=== PATIENT | female | born 1965 ===

== ENCOUNTER 2016-05-10 03:20 | Emergency (ER) | payer OTHER ==
[~2016-05-10 03:20] MED LIST: AMOXIL 875 MG875 MG PO; ANTIVERT 25MG #1 PAC PO; LEVAQUIN500 MG PO; PERCOCET 5-3251 EACH PO; PROMETHAZINE HC25 M3 PO; TESSALON PERLE100 MG PO
--- NOTE | 2016-05-10 03:50 | ED DYSPNEA/ASTHMA COMPLAINT ---
History of Present Illness General Chief Complaint: Chest Pain Stated Complaint: "PER PT SOB AND CP" Source: patient, family Exam Limitations: no limitations Vital Signs & Intake/Output Vital Signs & Intake/Output Vital Signs Date Time Temp Pulse Resp B/P Pulse O2 O2 Flow FiO2 Ox Delivery Rate 05/10 338 94 Room Air Room Air 05/10 336 101.3 83 20 141/76 94 Room Air Allergies Coded Allergies: ketorolac (From Toradol) (Severe, ANAPHYLAXIS 08/27/15) naproxen (From Aleve) (DIARRHEA 08/27/15) Reconcile Medications Albuterol Sulfate (Ventolin Hfa) 90 MCG HFA.AER.AD 2 PUF INH Q4-6 PRN PRN wheeze/cough Amoxicillin (Amoxil 875 MG Tablets) 875 MG TAB 1 TAB PO BID bronchitis Azithromycin (Zithromax) 250 MG TABLET 1 DP PO AD bronchitis 2 the first day followed by 1 for days 2-5 Benzonatate (Tessalon Perle) 100 MG CAPSULE 1 CAP PO TID PRN COUGH Benzonatate (Tessalon Perle) 100 MG CAPSULE 1-2 CAP PO TID cough Benzonatate (Tessalon Perle) 100 MG CAPSULE 1 CAP PO TID PRN COUGH Levofloxacin (Levaquin) 500 MG TABLET 1 TAB PO QDAY BRONCHITIS Meclizine (Antivert) 25 MG PAC 1 TAB PO TID PRN DIZZINESS Oxycodone HCl/Acetaminophen (Percocet 5-325 MG Tablet) 1 EACH TABLET 1-2 TAB PO Q6P PRN pain Oxycodone HCl/Acetaminophen (Percocet 5-325 MG Tablet) 5 MG-325 MG TABLET 1 TAB PO 4XDP PRN PAIN eight...[id number] Prednisone 50 MG TABLET 1 TAB PO DAILY bronchitis Promethazine HCl 25 MG TABLET 1 TAB PO Q6P PRN NAUSEA/VOMITING Triage Note: ARRIVED ER C/O TIGHTNESS IN CHEST /DIFFICULTY BREATHING,HX ASTHMA.WHEEZING Triage Nurses Notes Reviewed? yes Onset: Gradual Duration: day(s):, getting worse Timing: single episode today Severity: moderate Activities at Onset: none Prior Episodes/Possible Cause: occasional episodes Modifying Factors: Worsens With: movement, other (cough). Associated Symptoms: cough, wheezing HPI: 50 yo woman h/o asthma, presents with cough, wheeze x 1 day. "I cough so much it hurts my chest." "I have body aches all over... my back... all over." No fever, chills, radiation, diaphoresis, syncopal symptoms. (ESTRELLITA RODRIGUEZ,AYALA Nixon) Past History Travel History Traveled to [place] past 21 day No Medical History Any Pertinent Medical History? see below for history Neurological: NONE EENT: NONE Cardiovascular: hypertension, hyperlipidemia Respiratory: asthma Gastrointestinal: NONE Hepatic: NONE Renal: NONE Musculoskeletal: NONE Psychiatric: NONE Endocrine: diabetes Blood Disorders: NONE Cancer(s): NONE Surgical History Surgical History: non-contributory Psychosocial History Who do you live with Spouse Services at Home None What is your primary language [place] Tobacco Use: Never used Family History Hx Contributory? No (ESTRELLITA RODRIGUEZ,AYALA Nixon) Review of Systems Review of Systems Constitutional: Reports: no symptoms. EENTM: Reports: no symptoms. Respiratory: Reports: no symptoms. Cardiovascular: Reports: no symptoms. GI: Reports: no symptoms. Genitourinary: Reports: no symptoms. Musculoskeletal: Reports: no symptoms. Skin: Reports: no symptoms. Neurological/Psychological: Reports: no symptoms. Hematologic/Endocrine: Reports: no symptoms. Immunologic/Allergic: Reports: no symptoms. All Other Systems: Reviewed and Negative (ESTRELLITA RODRIGUEZ,AYALA Nixon) Physical Exam Physical Exam General Appearance: well developed/nourished, mild distress Head: atraumatic, normal appearance Eyes: Bilateral: normal appearance. Ears, Nose, Throat: normal pharynx, normal ENT inspection Neck: normal inspection Respiratory: wheezing, tenderness to parasternal region across chest to palpation Cardiovascular: regular rate/rhythm Gastrointestinal: normal bowel sounds, soft, non-tender Extremities: normal inspection Neurologic/Psych: no motor/sensory deficits, awake, alert, oriented x 3 Skin: intact, normal color, warm/dry Core Measures ACS in differential dx? No Severe Sepsis Present: No Septic Shock Present: No (AYALA CARREON MD) Progress Differential Diagnosis: asthma, bronchitis, CHF, COPD Plan of Care: Orders Procedure Date/time Status RAPID VIRAL INFLUENZA A 05/10 044 Complete TROPONIN LEVEL 05/10 349 Complete MAGNESIUM 05/10 035 Complete D-DIMER 05/10 349 Complete COMPREHENSIVE METABOLIC PANEL 05/10 035 Complete CBC WITHOUT DIFFERENTIAL 01/05 0350 Complete EKG 05/10 0322 Active Laboratory Tests 05/10/16 0455: Anion Gap 12, Estimated GFR > 60, BUN/Creatinine Ratio 22.5, Glucose 138 H, Calcium 9.3, Magnesium 0.9 *L, Total Bilirubin 0.4, AST 39 H, ALT 34, Alkaline Phosphatase 88, Troponin I < 0.01, Total Protein 7.5, Albumin 3.7, Globulin 3.8, Albumin/Globulin Ratio 1.0 L, D-Dimer 346 H, CBC w Diff NO MAN DIFF REQ, RBC 5.09, MCV 62.4 L, MCH 19.1 L, RDW 19.6 H, MPV 7.9, Gran % 70.3, Lymphocytes % 20.1 L, Monocytes % 7.5, Eosinophils % 1.8, Basophils % 0.3, Absolute Granulocytes 4.8, Absolute Lymphocytes 1.4, Absolute Monocytes 0.5, Absolute Eosinophils 0.1, Absolute Basophils 0, PUBS MCHC 30.6 L Diagnostic Imaging: Viewed by Me: Radiology Read. Discussed w/RAD: Radiology Read. Initial ED EKG: normal axis, normal intervals, normal p-waves, normal QRS complex, normal sinus rhythm Hand-Off Endorsed To: AVE PARK MD Endorsed Time: 0700 Pending: CT (ESTRELLITA RODRIGUEZ,AYALA Nixon) Radiology Impression: PATIENT: PASTORA SANTOS PRESENT AGE: 50 PATIENT ACCOUNT NO: [id number] : 66 LOCATION: [facility] ORDERING PHYSICIAN: AYALA CARREON MD SERVICE DATE: 05/10/16 EXAM TYPE: CAT - CTA CHEST-PULMONARY EMBOLISM EXAMINATION: CT ANGIOGRAM OF THE CHEST WITH AND WITHOUT CONTRAST (CT PULMONARY ANGIOGRAM FOR PE) CLINICAL INFORMATION: Dyspnea, positive d-dimer COMPARISON: CT abdomen pelvis 08/27/2015. Chest x-ray 12/31/2014 TECHNIQUE: Prior to contrast administration, noncontrast localization images were obtained. Subsequently, multidetector volumetric imaging was performed from the thoracic inlet to below the diaphragms following the administration of 98 mL Optiray 320 intravenous contrast. No contrast reaction reported Sagittal, coronal, and MIP oblique sagittal reformatted images were obtained on the CT workstation, uploaded to PACS, and reviewed. FINDINGS: QUALITY OF STUDY/CONTRAST BOLUS: Satisfactory. Evaluation of subsegmental pulmonary emboli is limited by the image quality from the patient's body habitus and imaging [id number]. PULMONARY ARTERIES: No central or segmental pulmonary emboli. Evaluation of the subsegmental pulmonary emboli is limited. THORACIC AORTA: No aneurysm or dissection. LUNG: Ill-defined 1.2 x 2 cm focus of groundglass opacity is seen in the left lower lobe posterior costophrenic sulcus. There is consolidation extending centripetally to the medial pleural margin in the medial inferior left lower lobe there is linear atelectasis vs. consolidation within the lingula. PLEURA: No pleural effusion or pneumothorax. MEDIASTINUM: Normal heart size. No pericardial effusion. No hilar or mediastinal lymphadenopathy. No evidence of septal bowing or right heart strain. CHEST WALL/AXILLA: No axillary or internal mammary lymphadenopathy. OSSEOUS STRUCTURES: No acute or suspicious osseous abnormality. UPPER ABDOMEN: Unremarkable. No reflux of contrast into the hepatic veins to suggest elevated right heart pressures. IMPRESSION: No central or segmental pulmonary embolus seen. 1.2 x 2 cm focus of groundglass opacity in the left lower lobe with linear peripheral consolidation extending centripetally to the medial pleural margin. Atelectasis could have this appearance but early or developing pneumonia is possible as well. The findings are new since 08/27/2015. Consider follow-up after treatment to ensure resolution and exclude an underlying neoplasm. DICTATED BY: AILEEN RODRIGUEZ MD DATE/TIME DICTATED:05/10/16722 CLERK RATING:EDI DATE/TIME TRANSCRIBED:05/10/16722 CONFIDENTIAL, DO NOT COPY WITHOUT APPROPRIATE AUTHORIZATION. 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 05/10/2016 7:46:08 AM patient updated on test results and all questions have been answered. She appears comfortable seated on the stretcher. She offers no complaint other than the chest pain. (XAVIER RODRIGUEZ,AVE Garcia) Departure Departure Disposition: HOME OR SELF CARE Condition: Stable Referrals: PATIENT HAS NO PRIMARY CARE DR (PCP/Family) Departure Forms: Customer Survey General Discharge Information (ESTRELLITA RODRIGUEZ,AYALA R.) Departure Clinical Impression Primary Impression: Muscle pain Secondary Impressions: Chest wall pain Pneumonia Qualifiers: Pneumonia type: due to unspecified organism Laterality: left Lung location: lower lobe of lung Qualified Code: J18.9 - Pneumonia, unspecified organism Additional Instructions: Rest, no exertion. Medications as prescribed. Follow-up with your primary care doctor within 48 hours for reevaluation. Return if any concerns or sudden worsening. Prescriptions: Current Visit Scripts Azithromycin (Zithromax) 1 DP PO AD #6 TAB 2 the first day followed by 1 for days 2-5 Albuterol Sulfate (Ventolin Hfa) 2 PUF INH Q4-6 PRN PRN wheeze/cough #1 INHAL Ref 1 Prednisone 1 TAB PO DAILY #4 TAB Benzonatate (Tessalon Perle) 1-2 CAP PO TID #30 CAP Oxycodone HCl/Acetaminophen (Percocet 5-325 MG Tablet) 1 TAB PO 4XDP PRN PAIN #8 TAB eight...[id number] (XAVIER RODRIGUEZ,AVE Garcia) Critical Care Note Critical Care Note Critical Care Time: non-applicable (ESTRELLITA RODRIGUEZ,AYALA Nixon)
[2016-05-10 05:25] LABS: ABSOLUTE BASOPHIL COUNT 0 /CUMM (0.0-0.2); ABSOLUTE EOSINOPHIL COUNT 0.1 /CUMM (0.0-0.7); ABSOLUTE GRANULOCYTE CT 4.8 /CUMM (1.4-6.5); ABSOLUTE LYMPH COUNT 1.4 /CUMM (1.2-3.4); ABSOLUTE MONOCYTE COUNT 0.5 /CUMM (0.10-0.60); BASOPHIL % 0.3 % (0.0-2.0); EOSINOPHIL % 1.8 % (0-5); GRANULOCYTE % 70.3 % (42.2-75.2); HEMATOCRIT 31.8 % (37-47); MEAN CORPUSCULAR HGB 19.1 PG (27.0-31.0); MEAN CORPUSCULAR HGB CONC 30.6 G/DL (33.0-37.0); MEAN CORPUSCULAR VOLUME 62.4 FL (81.0-99.0); MEAN PLATELET VOLUME 7.9 FL (7.4-10.4); PLATELET COUNT 420 /CUMM (130-400); RBC DISTRIBUTION WIDTH 19.6 % (11.5-14.5); RED BLOOD CELL CT 5.09 /CUMM (4.20-5.40); WHITE BLOOD CELL COUNT 6.8 /CUMM (4.8-10.8)
[2016-05-10] MEDS ORDERED: ZITHROMAX250 M2 PO ×2 (05:41→07:56)
[2016-05-10] MEDS ORDERED: TESSALON PERLE100 M1 PO ×2 (05:41→07:56)
[2016-05-10] MEDS ORDERED: VENTOLIN HFA18 GM INH (05:41)
[2016-05-10] MEDS ORDERED: PERCOCET 5-3251 EACH PO ×2 (05:41→07:56)
[2016-05-10] MEDS ORDERED: PREDNISONE50 M1 PO (05:41)
--- NOTE | 2016-05-10 07:36 | CT SCAN REPORT ---
EXAMINATION: CT ANGIOGRAM OF THE CHEST WITH AND WITHOUT CONTRAST (CT PULMONARY ANGIOGRAM FOR PE) CLINICAL INFORMATION: Dyspnea, positive d-dimer COMPARISON: CT abdomen pelvis 08/27/2015. Chest x-ray 12/31/2014 TECHNIQUE: Prior to contrast administration, noncontrast localization images were obtained. Subsequently, multidetector volumetric imaging was performed from the thoracic inlet to below the diaphragms following the administration of 98 mL Optiray 320 intravenous contrast. No contrast reaction reported Sagittal, coronal, and MIP oblique sagittal reformatted images were obtained on the CT workstation, uploaded to PACS, and reviewed. FINDINGS: QUALITY OF STUDY/CONTRAST BOLUS: Satisfactory. Evaluation of subsegmental pulmonary emboli is limited by the image quality from the patient's body habitus and imaging [id number]. PULMONARY ARTERIES: No central or segmental pulmonary emboli. Evaluation of the subsegmental pulmonary emboli is limited. THORACIC AORTA: No aneurysm or dissection. LUNG: Ill-defined 1.2 x 2 cm focus of groundglass opacity is seen in the left lower lobe posterior costophrenic sulcus. There is consolidation extending centripetally to the medial pleural margin in the medial inferior left lower lobe there is linear atelectasis vs. consolidation within the lingula. PLEURA: No pleural effusion or pneumothorax. MEDIASTINUM: Normal heart size. No pericardial effusion. No hilar or mediastinal lymphadenopathy. No evidence of septal bowing or right heart strain. CHEST WALL/AXILLA: No axillary or internal mammary lymphadenopathy. OSSEOUS STRUCTURES: No acute or suspicious osseous abnormality. UPPER ABDOMEN: Unremarkable. No reflux of contrast into the hepatic veins to suggest elevated right heart pressures. IMPRESSION: No central or segmental pulmonary embolus seen. 1.2 x 2 cm focus of groundglass opacity in the left lower lobe with linear peripheral consolidation extending centripetally to the medial pleural margin. Atelectasis could have this appearance but early or developing pneumonia is possible as well. The findings are new since 08/27/2015. Consider follow-up after treatment to ensure resolution and exclude an underlying neoplasm.
[2016-05-10] MEDS ORDERED: MEDROL4 M2 PO (07:56)
[2016-05-10] MEDS ORDERED: PROAIR HFA8.5 GM INH (07:56)
[2016-05-10 08:09] VITALS: BP 143/64
== END 2016-05-10 08:19 ==
LOC: ERH 03:20
PROVIDERS: Pediatrics
DX: J18.9 Pneumonia, unspecified organism (principal); R07.89 Other chest pain; M79.1 Myalgia
CPT/HCPCS: 87804; 87804-59; 93005; 93010; 96374; J0131; J1100; J2930; J3490